=== PATIENT | male | born 1985 | race Two or more races ===

== ENCOUNTER 2018-02-13 18:08 | Emergency (ER) | payer BC ==
[2018-02-13 18:33] VITALS: BP 135/89
--- NOTE | 2018-02-13 20:58 | UC ---
Francisco Maher Angela, scribed for Pan Styles MD on 02/13/18 at 1850 . Abdominal Pain Male HPI - HPI Summary HPI Summary: This pt is a 32 y/o male presenting to [facility] c/o right sided abd pain that began yesterday. Pt reports yesterday he pushed on the area of pain and it was so painful he fainted. Denies LOC. Pt notes he then became diaphoretic and after a little while his pain improved. He went to sleep last night as his pain had improved. Today pt states he has had RLQ abd pain all day. He currently rates his pain 5/10 in severity and describes it as nonradiating. Denies PMHx. - History of Current Complaint Chief Complaint: UCAbdominalPain Stated Complaint: ABDOMINAL PAIN Time Seen by Provider: 02/13/18 18:27 Hx Obtained From: Patient Onset/Duration: Lasting Days, Still Present Timing: Constant Severity Currently: Moderate Pain Intensity: 5 Pain Scale Used: 0-10 Numeric Location: Discrete At: RLQ Radiates: No Aggravating Factor(s): Nothing Alleviating Factor(s): Nothing Associated Signs And Symptoms: Negative: Fever, Nausea, Vomiting - Allergies/Home Medications Allergies/Adverse Reactions: Allergies Allergy/AdvReac Type Severity Reaction Status Date / Time No Known Allergies Allergy Verified 02/13/18 18:33 Home Medications: Home Medications NK [No Home Medications Reported] 02/13/18 [History Confirmed 02/13/18] PMH/Surg Hx/FS Hx/Imm Hx Other Endocrine History: DENIES: diabetes Other Cardiovascular History: DENIES: HTN - Surgical History Surgical History: Yes Surgery Procedure, Year, and Place: tonsils - Family History Known Family History: Negative: Cardiac Disease, Hypertension, Diabetes - Social History Alcohol Use: Occasionally Substance Use Type: None Smoking Status (MU): Never Smoked Tobacco Review of Systems Constitutional: Negative Skin: Negative Eyes: Negative ENT: Negative Respiratory: Negative Cardiovascular: Negative Gastrointestinal: Abdominal Pain Genitourinary: Negative Motor: Negative Neurovascular: Negative Musculoskeletal: Negative Neurological: Negative Psychological: Negative Is Patient Immunocompromised?: No All Other Systems Reviewed And Are Negative: Yes Physical Exam - Summary Physical Exam Summary: VITAL SIGNS: Reviewed. GENERAL: Patient is a well-developed and nourished male who is lying comfortable in the stretcher. Patient is not in any acute respiratory distress. HEAD AND FACE: Normocephalic EYES: PERRLA, EOMI x 2. EARS: Hearing grossly intact. MOUTH: Oropharynx within normal limits. NECK: Supple, trachea is midline, no adenopathy, no JVD, no carotid bruit. CHEST: Symmetric, no tenderness at palpation LUNGS: Clear to auscultation bilaterally. No wheezing or crackles. CVS: Regular rate and rhythm, S1 and S2 present, no murmurs or gallops appreciated. ABDOMEN: Soft, right lower quadrant tenderness. Bowel sounds are normal. No abdominal abnormal pulsations. No hernia. Good pulses. EXTREMITIES: Full ROM in all major joints, no edema, no cyanosis or clubbing. NEURO: Alert and oriented x 3. No acute neurological deficits. Speech is normal and follows commands. SKIN: Dry and warm Triage Information Reviewed: Yes Vital Signs: Initial Vital Signs Temp 97.7 F 02/13/18 18:25 Pulse 84 02/13/18 18:25 Resp 18 02/13/18 18:25 BP 135/89 02/13/18 18:25 Pulse Ox 100 02/13/18 18:25 Vital Signs Reviewed: Yes Abd Pain Male Course/Dx - Course Course Of Treatment: This pt is a 32 y/o male presenting to [facility] c/o abd pain that began yesterday. Pt reports yesterday he pushed on the area of pain and it was so painful he fainted. Denies LOC. Pt notes he then became diaphoretic and after a little while his pain improved. He went to sleep last night as his pain had improved. Today pt states he has had RLQ abd pain all day. He currently rates his pain 5/10 in severity and describes it as nonradiating. On exam pt has RLQ tenderness. He was instructed to go to the ED for further assessment to rule out appendicitis. Pt was offered ambulance but he declines. Pt will go to the emergency department via private car. Plan of care was discussed with the patient and pt understands and agrees. Pt will be discharged to go directly to the ED. Pt is hemodynamically stable, alert and oriented x3. The patient was found to have increased blood pressure in UC. The patient will follow up with PCP for better control of BP. - Differential Dx/Clinical Impression Provider Diagnoses: Abdominal pain, rule out appendicitis Discharge - Sign-Out/Discharge Documenting (check all that apply): Discharge/Admit/Transfer - Discharge - Discharge Plan Condition: Stable Disposition: HOME Patient Education Materials: Abdominal Pain (ED) Referrals: [facility] PHYSICIAN REFERRAL [Outside] No Primary Care Phys,NOPCP [Primary Care Provider] - Additional Instructions: Patient discharged to the ED. Declined ambulance. The documentation as recorded by the Francisco johnson Angela accurately reflects the service I personally performed and the decisions made by Jensen atkinson Walter, MD.
== END 2018-02-13 19:00 | disposition home or self-care (01) ==
LOC: UCEAST 18:08
DX: R10.31 Right lower quadrant pain (principal)
CPT/HCPCS: 99202; G0463

== ENCOUNTER 2018-02-14 13:23 | Emergency (ER) | payer BC ==
[2018-02-14 16:30] LABS: Hematocrit 46 % (42-52); Hemoglobin 16.1 g/dl (14.0-18.0); Mean Corpuscular HGB Conc 35 g/dl (31-36); Mean Corpuscular Hemoglobin 29 pg (27-31); Mean Corpuscular Volume 84 fL (80-94); Mean Platelet Volume 9.7 um3 (7.4-10.4); Platelet Count 176 10^3/ul (150-450); Red Blood Count 5.48 10^6/ul (4.0-5.4); Red Cell Distribution Width 13 % (10.5-15); White Blood Count 8.1 10^3/ul (3.5-10.8)
[2018-02-14 16:33] LABS: ABS Basophils 0 10^3/ul (0-0.2); ABS Eosinophils 0.1 10^3/ul (0-0.6); ABS Lymphocytes 1.3 10^3/ul (1.0-4.8); ABS Monocytes 0.5 10^3/ul (0-0.8); ABS Neutrophils 6.2 10^3/ul (1.5-7.7); ABS Nucleated RBC 0 10^3/ul; Lymphocyte % 15.8 % (25-47); Nucleated Red Blood Cells % 0.1
[2018-02-14 16:54] LABS: EGFR Non-African American 86.2 (>60)
[2018-02-14 17:05] LABS: Urine Appearance Clear; Urine Blood Negative (Negative); Urine Color Straw; Urine Ketones Negative (Negative); Urine Protein Negative (Negative); Urine Specific Gravity 1.009 (1.010-1.030); Urine Urobilinogen Negative (Negative)
[2018-02-14 18:17] VITALS: BP 140/86
--- NOTE | 2018-02-14 18:24 | ED ---
Trung Maher Natalie, scribed for Alvarado Huang MD on 02/14/18 at 1651 . Abdominal Pain/Male - HPI Summary HPI Summary: The pt is a 32 y/o M presenting to the ED c/o RLQ pain and tenderness starting two days ago. He had a sharp pain and when he pushed on it, he felt a gurgle as some sort of relief, but he soon passed up and woke up about twenty minutes later. When he woke up yesterday, he was still having pain, so he went to Urgent Care, where he was told to come to the ED. He woke up this morning with pain, so he came in. The pain is present intermittently with movement. Pt additionally c/o loss of appetite and back pain. Pt denies abnormal urinary and bowel symptoms. - History of Current Complaint Chief Complaint: EDAbdPain Stated Complaint: ABD PAIN Time Seen by Provider: 02/14/18 16:27 Hx Obtained From: Patient Onset/Duration: Sudden Onset, Lasting Days - two days, Still Present Timing: Lasting Days Severity Initially: Moderate Severity Currently: Mild Pain Intensity: 1 Pain Scale Used: 0-10 Numeric Location: Discrete At: RLQ Radiates: Yes Radiates to: Back Character: Sharp Aggravating Factor(s): Nothing Alleviating Factor(s): Nothing Associated Signs And Symptoms: Positive: Back Pain, Decreased Appetite. Negative: Constipation, Urinary Symptoms, Nausea - Allergies/Home Medications Allergies/Adverse Reactions: Allergies Allergy/AdvReac Type Severity Reaction Status Date / Time No Known Allergies Allergy Verified 02/14/18 16:40 PMH/Surg Hx/FS Hx/Imm Hx Opthamlomology History: Denies: Hx Legally Blind EENT History: Denies: Hx Deafness - Surgical History Surgery Procedure, Year, and Place: tonsils Infectious Disease History: No Infectious Disease History: Denies: Traveled Outside the [place] in Last 30 Days - Family History Known Family History: Negative: Cardiac Disease, Hypertension, Diabetes - Social History Alcohol Use: Occasionally Substance Use Type: Reports: None Smoking Status (MU): Never Smoked Tobacco Review of Systems Positive: Abdominal Pain - RLQ, Other - normal BM, loss of appetite Genitourinary: Other - normal urination Positive: Other - back pain All Other Systems Reviewed And Are Negative: Yes Physical Exam - Summary Physical Exam Summary: Appearance: The patient is well-nourished in no acute distress and in no acute pain. Skin: The skin is warm and dry and skin color reflects adequate perfusion. HEENT: The head is normocephalic and atraumatic. The pupils are equal and reactive. The conjunctivae are clear and without drainage. Nares are patent and without drainage. Mouth reveals moist mucous membranes and the throat is without erythema and exudate. The external ears are intact. The ear canals are patent and without drainage. The tympanic membranes are intact. Neck: the neck is supple with full range of motion and non-tender. There are no carotid bruits. There is no neck vein distension. Respiratory: Chest is non-tender. Lungs are clear to auscultation and breath sounds are symmetrical and equal. Cardiovascular: Heart is regular rate and rhythm. There is no murmur or rub auscultated. There is no peripheral edema and pulses are symmetrical and equal. Abdomen: The abdomen is soft and tender Lambert's signs. There are normal bowel sounds heard in all four quadrants and there is no organomegaly palpated. Musculoskeletal: There is no back tenderness noted. Extremities are non-tender with full range of motion. There is good capillary refill. There is no peripheral edema or calf tenderness elicited. Neurological: Patient is alert and oriented to person, place and time. The patient has symmetrical motor strength in all four extremities. Cranial nerves are grossly intact. Deep tendon reflexes are symmetrical and equal in all four extremities. Psychiatric: The patient has an appropriate affect and does not exhibit any anxiety or depression. Triage Information Reviewed: Yes Vital Signs On Initial Exam: Initial Vitals Temp Pulse Resp BP Pulse Ox 98.0 F 76 16 142/86 100 02/14/18 13:23 02/14/18 13:23 02/14/18 13:23 02/14/18 13:23 02/14/18 13:23 Vital Signs Reviewed: Yes Diagnostics - Vital Signs Vital Signs Temp Pulse Resp BP Pulse Ox 02/14/18 15:47 98.4 F 78 16 121/64 100 02/14/18 13:23 98.0 F 76 16 142/86 100 - Laboratory Lab Results: Lab Results 02/14/18 Range/Units 16:16 WBC 8.1 (3.5-10.8) 10^3/ul RBC 5.48 H (4.0-5.4) 10^6/ul Hgb 16.1 (14.0-18.0) g/dl Hct 46 (42-52) % MCV 84 (80-94) fL MCH 29 (27-31) pg MCHC 35 (31-36) g/dl RDW 13 (10.5-15) % Plt Count 176 (150-450) 10^3/ul MPV 9.7 (7.4-10.4) um3 Neut % (Auto) 76.9 (38-83) % Lymph % (Auto) 15.8 L (25-47) % Lea % (Auto) 5.8 (0-7) % Eos % (Auto) 1.0 (0-6) % Baso % (Auto) 0.5 (0-2) % Absolute Neuts (auto) 6.2 (1.5-7.7) 10^3/ul Absolute Lymphs (auto) 1.3 (1.0-4.8) 10^3/ul Absolute Monos (auto) 0.5 (0-0.8) 10^3/ul Absolute Eos (auto) 0.1 (0-0.6) 10^3/ul Absolute Basos (auto) 0 (0-0.2) 10^3/ul Absolute Nucleated RBC 0 10^3/ul Nucleated RBC % 0.1 Result Diagrams: 02/14/18 16:16 02/14/18 16:16 Lab Statement: Any lab studies that have been ordered have been reviewed, and results considered in the medical decision making process. Re-Evaluation - Re-Evaluation Second Eval Re-Evaluation Time: 18:00 Change: Improved - The pt's pain has improved. He is agreeable to being discharged home. Abdominal Pain Fem Course/Dx - Course Course Of Treatment: Mr. Marrero presented with an atypical RLQ pain that has been improving slowly over two days. He had tendeerness at McBurney's point. He had no leukocytosis and a normal CRP. I'm not sure what is causing the pain but appendicitis seems less likely with the history and the lab work. A hernia is certainly stil a possibility. He will return for any change such as increased pain, fever or vomiting. He will F/U if not improved in a day or so. - Diagnoses Provider Diagnoses: Abdominal pain Discharge - Sign-Out/Discharge Documenting (check all that apply): Discharge/Admit/Transfer - Discharge Plan Condition: Stable Disposition: HOME Patient Education Materials: Abdominal Pain (ED) Referrals: [facility] [place] PHYSICIAN REFERRAL [Outside] - 3 Days No Primary Care Phys,NOPCP [Primary Care Provider] - - Billing Disposition and Condition Condition: STABLE Disposition: HOME The documentation as recorded by the Trung johnson Natalie accurately reflects the service I personally performed and the decisions made by me, Alvarado Huang MD.
== END 2018-02-14 18:15 | disposition home or self-care (01) ==
LOC: ED 13:23
DX: R10.31 Right lower quadrant pain (principal); M54.9 Dorsalgia, unspecified
CPT/HCPCS: 36415; 80053; 81003; 83690; 85025; 86140; 99282